=== PATIENT | female | born 1955 | race African-American/Black ===

== ENCOUNTER 2016-04-03 07:44 | Emergency (ER) | payer OTHER ==
[2016-04-03] MEDS ORDERED: CloNIDine HCL 0.1 MG TABLET PO ONE (08:27)
[2016-04-03] MEDS: CloNIDine HCL 0.1 MG TABLET PO ONE (08:30)
[2016-04-03 08:37] VITALS: BP 215/109
--- NOTE | 2016-04-03 08:42 | ED Physician Documentation ---
Fall - HISTORIAN Historian: patient - HPI Stated Complaint: L leg swelling secondary to fall Chief Complaint: Fall Additional Information: pt fell this am hitting lt leg on dresser w/12cm hematoma mid lat thigh. no other injuries but bp quite high Onset: today (0500) Where: home Context: slipped, lost balance r: moderate Associated Symptoms:: no loss of consciousness Location of Pain/Injury: denies: head, neck, face, chest, abdomen Injury to Left Extremity: leg - ROS CONST: no problems NEURO: denies: dizziness, anxiety, depression MS/SKIN/LYMPH: denies: weakness, numbness, neck pain, back pain, ankle swelling EYES/ENT: none CVS/RESP: none GI/: denies: problems urinating - PAST HX Past History: cardiac disease (prev CHF on lasix), other (htn occ gout-rarely) Allergies/Adverse Reactions: Allergies Allergy/AdvReac Type Severity Reaction Status Date / Time No Known Allergies Allergy Verified 04/03/16 08:15 Home Medications: Ambulatory Orders Medication Instructions Recorded CloNIDine HCL [Catapress] 0.1 mg PO D #30 tablet 04/03/16 Clonidine HCl [Catapres] 0.1 mg PO D #30 tablet 04/03/16 - SOCIAL HX Smoking History: non-smoker Alcohol Use: none Drug Use: none - FAMILY HX Family History: cardiac disease ( iddm - father sudden ) - VITAL SIGNS Vital Signs: Vital Signs Temp Pulse Resp BP Pulse Ox 98 F 98 H 18 215/109 98 04/03/16 08:34 04/03/16 08:34 04/03/16 08:34 04/03/16 08:34 04/03/16 08:34 - REVIEWED ASSESSMENTS Nursing Assessment Reviewed: Yes Vitals Reviewed: Yes ED Results Lab/Radiology - Orders Orders: ED Orders Category Date Time Status Chem Sticks Med 04/03/16 09:00 Discontinued 1 each MC CHEMQ CloNIDine HCL [Catapress] Med 04/03/16 08:27 Discontinued 0.1 mg PO .STK-MED ONE CloNIDine HCL [Catapress] Med 04/03/16 08:30 Discontinued 0.1 mg PO NOW ONE Fall Physical Exam - Physical Exam General Appearance: moderate distress Head: non-tender Neck: non-tender Eye: JT, EOMI ENT: nml external inspection Resp/CVS: chest non-tender, no ecchymosis, breath sounds nml, no resp. distress , heart sounds nml Abdomen: soft, non-tender Neuro: oriented x3, CN's nml as tested, sensation nml, motor nml, mood/affect nml Back: normal inspection Extremities: other (12 cm hematoma as prev described) Joint: joints nml - Trung Coma Score Eyes Open: Spontaneous Speech: Oriented Motor: Obeys Commands Discharge Clincal Impression: hematoma lt lat leg, Uncontrolled hypertension, pmh of CHF Prescriptions: CloNIDine HCL [Catapress] 0.1 mg PO D #30 tablet Clonidine HCl [Catapres] 0.1 mg PO D #30 tablet Referrals: [facility] [Primary Care Provider] - 2 Days Home Medications: Ambulatory Orders CloNIDine HCL [Catapress] 0.1 mg PO D #30 tablet 04/03/16 Clonidine HCl [Catapres] 0.1 mg PO D #30 tablet 04/03/16 Comments: FREQ HOME BP MEASUREMENT AND F/U SOON W/PCP RE MED CHG-ADDITION CLONIDINE Condition: Stable Disposition: 01 HOME, SELF-CARE Decision to Admit: NO Decision Time: 08:48
== END 2016-04-03 08:38 | disposition home or self-care (01) ==
LOC: ED 07:44
DX: S70.12XA Contusion of left thigh, initial encounter (principal); I10 Essential (primary) hypertension; I50.9 Heart failure, unspecified
CPT/HCPCS: 99282; 99283

== ENCOUNTER 2016-04-17 13:47 | Outpatient (CLI) | payer OTHER ==
--- NOTE | 2016-04-18 06:53 | Diagnostic Imaging Report ---
[facility] [id number] [facility].[address] [address] ~ ~ ~ ~ Report Submission Date: Apr 17, 2016 3:09:46 PM TIN WORKER Patient ~ Study Name: MAURISIO BEARDEN ~ Date: Apr 17, 2016 2:00:04 PM TIN WORKER ~ Modality Type: US Gender: F ~ Description: UNILAT LTD STDY EXT VEINS : 53 ~ Institution: [facility] Physician TODD MIRANDA ~ ~ ~ Ultrasound venous Doppler left lower extremity HISTORY: ~ Left lower extremity swelling and bruising 2 weeks after injury FINDINGS: ~ Visualized portions of the left external iliac, common femoral, profunda femoris , greater saphenous, femoral, popliteal, and posterior tibial veins exhibit normal respiratory phasicity, compressibility, and augmentation without grayscale or color Doppler evidence of deep venous thrombosis. ~Subcutaneous edema is observed in the calf. IMPRESSION: ~ Patent left lower extremity deep veins without deep venous thrombosis. ~ Electronically signed on Apr 17, 2016 3:09:46 PM TIN WORKER by: Sunday SANDOVAL
== END 2016-04-17 13:50 ==
LOC: RAD 13:47
PROVIDERS: ATTEND Physician Assistant
DX: M79.89 Other specified soft tissue disorders (principal)
CPT/HCPCS: 93971

== ENCOUNTER 2016-07-07 11:21 | Outpatient (CLI) | payer OTHER ==
[2016-07-07 11:59] LABS: BASOPHILS % 0.3 (0.0-1.5); EOSINOPHILS % 1.2 % (0.0-6.8); MEAN CORPUSCULAR HEMOGLOBIN 26.4 pg (28.0-34.0); MEAN CORPUSCULAR VOLUME 91.8 fl (80.0-100.0); MONOCYTES % 1.8 % (0.0-11.0); NEUTROPHILS # 8.1 # k/uL (1.4-7.7)
[2016-07-07 12:12] LABS: eGFR (African) > 60; eGFR (Non-African) > 60
[2016-07-07 12:26] LABS: ANISOCYTOSIS 1+ (NEGATIVE); HYPOCHROMASIA 1+ (NEGATIVE)
--- NOTE | 2016-07-07 15:22 | Diagnostic Imaging Report ---
TODD MIRANDA [facility] [address] [facility].[address] [address] Report Submission Date: July 07, 2016 3:06:42 PM CDT Patient Study Name: MAURISIO BEARDEN Date: July 07, 2016 11:47:01 AM CDT Modality Type: CR Gender: F Description: CHEST : 53 Institution: [facility] Physician: TODD MIRANDA 2 views of the chest History: COUGH, SHORTNESS OF BREATH, DIZZINESS. NON-SMOKER Findings: No comparison studies Cardiomegaly, tortuous aorta. 1.3 cm left parahilar nodular opacity seen. Pulmonary vascular congestion is present Interstitial opacities are seen in the lungs. No pleural effusion. There is minimal right upper lobe scarring. Degenerative changes of the thoracic spine Impression: 1. Cardiomegaly with pulmonary vascular congestion. 2. Interstitial opacities may represent interstitial pneumonia versus pulmonary edema. 3. A 1.3 cm nodular opacity in the left parahilar region, faintly seen, consider CT chest evaluation. Electronically signed on July 07, 2016 3:06:42 PM CDT by: Mala SANDOVAL
== END 2016-07-07 11:22 ==
LOC: LAB 11:21
PROVIDERS: ATTEND Family Medicine
DX: R06.02 Shortness of breath (principal); R42 Dizziness and giddiness; M25.472 Effusion, left ankle; R58 Hemorrhage, not elsewhere classified; T14.8 Other injury of unspecified body region
CPT/HCPCS: 36415; 71020; 80053; 83880; 84484; 85025; 85610; 85730

== ENCOUNTER 2016-07-22 08:52 | Outpatient (CLI) | payer OTHER ==
[2016-07-22 09:04] LABS: BASOPHILS % 0.2 (0.0-1.5); EOSINOPHILS % 1.2 % (0.0-6.8); MEAN CORPUSCULAR HEMOGLOBIN 26.6 pg (28.0-34.0); MEAN CORPUSCULAR VOLUME 91.5 fl (80.0-100.0); MONOCYTES % 2.8 % (0.0-11.0); NEUTROPHILS # 7.7 # k/uL (1.4-7.7)
[2016-07-22 09:27] LABS: ANISOCYTOSIS 1+ (NEGATIVE); HYPOCHROMASIA 1+ (NEGATIVE)
== END 2016-07-22 08:53 ==
LOC: LAB 08:52
PROVIDERS: ATTEND Physician Assistant
DX: D69.6 Thrombocytopenia, unspecified (principal)
CPT/HCPCS: 36415; 85025

== ENCOUNTER 2016-10-21 09:24 | Outpatient (CLI) | payer OTHER ==
[2016-10-21 09:44] LABS: BASOPHILS % 0.3 (0.0-1.5); EOSINOPHILS % 4.6 % (0.0-6.8); MEAN CORPUSCULAR HEMOGLOBIN 24.4 pg (28.0-34.0); MEAN CORPUSCULAR VOLUME 83.8 fl (80.0-100.0); MONOCYTES % 3.9 % (0.0-11.0); NEUTROPHILS # 5.9 # k/uL (1.4-7.7)
[2016-10-21 10:08] LABS: eGFR (African) > 60; eGFR (Non-African) > 60
== END 2016-10-21 09:25 ==
LOC: LAB 09:24
PROVIDERS: ATTEND Physician Assistant
DX: D69.3 Immune thrombocytopenic purpura (principal); Z51.81 Encounter for therapeutic drug level monitoring
CPT/HCPCS: 36415; 80053; 85025

== ENCOUNTER 2017-01-13 09:57 | Outpatient (CLI) | payer OTHER ==
[2017-01-13 10:28] LABS: eGFR (African) > 60; eGFR (Non-African) > 60
== END 2017-01-13 10:00 ==
LOC: LAB 09:57
PROVIDERS: ATTEND Physician Assistant
DX: Z00.00 Encounter for general adult medical examination without abnormal findings (principal); Z13.6 Encounter for screening for cardiovascular disorders; I10 Essential (primary) hypertension
CPT/HCPCS: 36415; 80053; 80061

== ENCOUNTER 2017-06-18 01:07 | Emergency (ER) | payer OTHER ==
[2017-06-18] MEDS ORDERED: OXYMETAZOLINE HCL 0.05% NASAL SPRAY NS ONE (01:17)
[2017-06-18 02:10] LABS: MEAN CORPUSCULAR HEMOGLOBIN 25.9 pg (28.0-34.0); MEAN CORPUSCULAR VOLUME 84.9 fl (80.0-100.0)
[2017-06-18 02:37] VITALS: BP 157/82
[2017-06-18 06:24] LABS: SEGMENTED NEUTROPHILS % 74 % (39-79)
[2017-06-18 06:25] LABS: EOSINOPHILS % 4 % (0-7); HYPOCHROMASIA 1+ (NEGATIVE); MONOCYTES % 5 % (0-11)
[2017-06-18 06:27] LABS: ANISOCYTOSIS 1+ (NEGATIVE)
--- NOTE | 2017-06-18 09:00 | ED Physician Documentation ---
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 (5) Timing: still present Context: Wears CPAP, blew nose and had clots and some blood right nares Location: right Severity: mild Associated Symptoms: denies: recent injury, recent illness, fever, chills, sweating, nausea, vomiting blood, light-headedness, fainting, headache Further Comments: yes (hx of immunologic thrombocytopenia) - ROS MS/SKIN/LYMPH: denies: excessive bruising, bleeding from gums, bleeding from GI , bleeding from , swollen glands, joint pain EYES/ENT: none GI/: denies: black stool, problems urinating CVS/RESP: denies: chest pain, difficulty breathing NEURO/PSYCH: denies: dizziness, anxiety, depression - PAST HX Past History: previous nosebleeds, hypertension, other (immunologic thrombocytopenia) Other History: other (ortho) Immunizations: referred to PCP Allergies/Adverse Reactions: Allergies Allergy/AdvReac Type Severity Reaction Status Date / Time No Known Allergies Allergy Verified 06/18/17 01:19 - SOCIAL HX Smoking History: non-smoker Alcohol Use: rarely Drug Use: none - FAMILY HX Family History: No - VITAL SIGNS Vital Signs: Vital Signs Temp Pulse Resp BP Pulse Ox 98.4 F 78 18 157/82 97 06/18/17 01:10 06/18/17 02:35 06/18/17 02:35 06/18/17 02:35 06/18/17 02:35 - REVIEWED ASSESSMENTS Nursing Assessment Reviewed: Yes Vitals Reviewed: Yes Progress - Results/Orders Results/Orders: cbc ordered - Progress Progress: Pt. treated successfully with Afrin and pressure. Epistaxis resolved. Critical Care Note - Critical Care Note Total Time (mins): 0 ED Results Lab/Radiology - Lab Results Lab Results: Lab Results 06/18/17 01:36 WBC 6.40 K/ul K/ul (4.00-12.00) RBC 3.92 M/ul M/ul (3.90-5.20) Hgb 10.2 g/dL L g/dL (12.0-16.0) Hct 33.3 % L % (34.5-46.5) MCV 84.9 fl fl (80.0-100.0) MCH 25.9 pg L pg (28.0-34.0) MCHC 30.6 g/dL g/dL (30.0-36.0) RDW 15.2 % H % (11.3-14.3) Plt Count 5 K/mm3 L* K/mm3 (130-400) Seg Neutrophils % 74 % % (39-79) Lymphocytes % 16 % % (16-50) Monocytes % 5 % % (0-11) Eosinophils % 4 % % (0-7) Plt Morphology Comment Abnormal H (NORMAL) Hypochromasia 1+ H (NEGATIVE) Anisocytosis 1+ H (NEGATIVE) RBC Morph Comment Abnormal H (NORMAL) - Radiology Radiology Impressions: none ordered - Orders Orders: ED Orders Category Date Time Status CBC/PLATELET/DIFF Routine Lab 06/18/17 01:36 Completed Oxymetazoline HCl [Afrin 0.05%] Med 06/18/17 01:17 Discontinued 1 spray NS NOW ONE Epistaxis Physical Exam - EXAM General Appearance: no acute distress Nose: no active bleeding, fresh clots (R), anterior septum (3 areas of mucosal breakdown, not actively bleeding. ), other (No posterior bleeding.) Head/Neck: atraumatic, thyroid nml. No: facial swelling, erythema, pain on percussion over sinuses, thyromegaly Eyes/Ears: eyes nml inspection, PERRL, TM nml, other (conj pink) Mouth: lips nml, gums nml (nonbleeding), other (dried blood on tongu, no posterior pharyngeal bleeding) Neuro/Psych: oriented x3, neuro intact, mood/affect nml Respiratory: no resp distress, chest non-tender, breath sounds normal CVS: reg rate & rhythm, heart sounds normal, equal pulses, no murmur Abdomen: non-tender, no organomegaly Skin: nml color, no skin rash, other (no bruising). No: pallor, cyanosis, skin rash, ecchymosis, petechiae Discharge Clincal Impression: Thrombocytopenia, Epistaxis Referrals: Amanda Acevedo PA [Primary Care Provider] - 2 Days Comments: Discharged in stable condition with resolved epistaxis to care of family who is taking her home. No new medications. Pt. to call her psychiatry physician first thing in the morning. Will need Rituxan therapy. Condition: Stable Disposition: 01 HOME, SELF-CARE Decision to Admit: NO Decision Time: 02:30
== END 2017-06-18 02:35 | disposition home or self-care (01) ==
LOC: ED 01:07
DX: D69.6 Thrombocytopenia, unspecified (principal); R04.0 Epistaxis
CPT/HCPCS: 85025; 99283

== ENCOUNTER 2018-02-25 07:32 | Outpatient (CLI) | payer OTHER ==
[2018-02-25 08:53] LABS: eGFR (Non-African) > 60
[2018-02-25 10:22] LABS: BASOPHILS % 0.2 (0.0-1.5); EOSINOPHILS % 2.4 % (0.0-6.8); NEUTROPHILS # 4.7 # k/uL (1.4-7.7)
== END 2018-02-25 07:40 ==
LOC: LAB 07:32
PROVIDERS: ATTEND Physician Assistant
DX: Z00.00 Encounter for general adult medical examination without abnormal findings (principal); Z13.6 Encounter for screening for cardiovascular disorders
CPT/HCPCS: 36415; 80053; 80061; 85025

== ENCOUNTER 2018-10-06 23:00 | Emergency (ER) | payer OTHER ==
--- NOTE | 2018-10-06 23:08 | ED Physician Documentation ---
General Adult - HISTORIAN Historian: patient - HPI Stated Complaint: high blood pressure Chief Complaint: General Adult Timing: still present Severity: mild Further Comments: yes (She states she gets a head pouding and she knows her b/p is high. She denies any chest pain she has no weakness. She has two or three b/p meds she takes at home. She has no other complaints. No shortness of air.) - ROS CONST: no problems CVS/RESP: denies: chest pain, shortness of breath, cough GI/: denies: vomiting, nausea NEURO/PSYCH: denies: headache - PAST HX Past History: hypertension Immunizations: UTD Allergies/Adverse Reactions: Allergies Allergy/AdvReac Type Severity Reaction Status Date / Time No Known Drug Allergies Allergy Verified 10/06/18 23:14 Home Medications: Ambulatory Orders Medication Instructions Recorded Eltrombopag Olamine [Promacta] 50 mg PO DAILY 10/06/18 - SOCIAL HX Smoking History: non-smoker Alcohol Use: none Drug Use: none - FAMILY HX Family History: No - VITAL SIGNS Vital Signs: Vital Signs Temp Pulse Resp BP Pulse Ox 157/82 06/18/17 02:35 - REVIEWED ASSESSMENTS Nursing Assessment Reviewed: Yes Vitals Reviewed: Yes General Adult Physical Exam - PHYSICAL EXAM GENERAL APPEARANCE: no distress EENT: eye inspection normal, pharynx normal, no signs of dehydration NECK: normal inspection RESPIRATORY: no resp distress, chest non-tender, breath sounds normal CVS: reg rate & rhythm, heart sounds normal ABDOMEN: soft, normal bowel sounds, no distension BACK: normal inspection SKIN: warm/dry, normal color EXTREMITIES: non-tender, normal range of motion, no evidence of injury, no edema NEURO: oriented X3 Discharge Clincal Impression: Hypertension Qualifiers: Hypertension type: essential hypertension Qualified Code(s): I10 - Essential (primary) hypertension Referrals: Primary Doctor,No [Primary Care Provider] - 2 Days Comments: 1. Continue meds at home 2. Follow up with PCP In am for med adjustment 3. Return to ER for any increasing concerns Condition: Stable Disposition: 01 HOME, SELF-CARE Decision to Admit: NO Date of Decison to Admit: 10/06/18 Decision Time: 23:35
[2018-10-06 23:43] VITALS: BP 142/65
== END 2018-10-06 23:25 | disposition home or self-care (01) ==
LOC: ED 23:00
DX: I10 Essential (primary) hypertension (principal)
CPT/HCPCS: 99281; 99283